=== PATIENT | female | born 1970 | race Caucasian/White ===

== ENCOUNTER 2020-07-24 00:26 | Observation (INO) | payer BC ==
[~2020-07-24] VITALS: Ht 170.2 cm; Wt 121.0 kg
[~2020-07-24 00:26] MED LIST: IRBE1TAB PO; LEVO500T2 PO
[2020-07-24] MEDS ORDERED: normal saline 1000ML IV soln IVB ONE (00:55)
[2020-07-24] MEDS ORDERED: adenosine 3mg/ml 2ml vial IV ONE ×2 (01:10→01:25)
[2020-07-24 01:30] LABS: BASOPHILS % (AUTO) 0.4 % (0-1); EOSINOPHILS % (AUTO) 0.1 % (0-6); LYMPHOCYTES # (AUTO) 1.5 X10'3 (1.1-4.8); MEAN PLATELET VOLUME 6.5 FL (7.4-10.4); MONOCYTES # (AUTO) 0.9 X10'3 (0-0.9); MONOCYTES % (AUTO) 7.5 % (2-12); NEUTROPHILS # (AUTO) 9.3 X10'3 (1.8-7.7); PLATELET COUNT 253 X10'3 (140-440); WHITE BLOOD COUNT 11.8 X10'3 (4.5-11.0)
[2020-07-24 01:42] LABS: ALANINE AMINOTRANSFERASE 62 U/L (12-78); ALBUMIN 3.4 G/DL (3.4-5.0); ALBUMIN/GLOBULIN RATIO 0.9 (1.1-1.5); ALKALINE PHOSPHATASE 86 IU/L (46-116); ANION GAP 14 (8-16); ASPARTATE AMINO TRANSFERASE 37 U/L (10-37); BILIRUBIN,TOTAL 0.5 MG/DL (0.1-1.0); BLOOD UREA NITROGEN 15 MG/DL (7-18); BUN/CREATININE RATIO 9.3 (6.6-38.0); CALCIUM 8.5 MG/DL (8.5-10.1); CHLORIDE 96 MMOL/L (99-107); CREATININE 1.62 MG/DL (0.40-0.90); GLUCOSE 162 MG/DL (70-104); SODIUM 132 MMOL/L (135-145); TOTAL PROTEIN 7.3 G/DL (6.4-8.2); eGFR 33 ML/MIN
[2020-07-24 02:04] LABS: HEMATOCRIT 40.2 % (35.0-45.0); HEMOGLOBIN 14.3 g/dl (12.0-16.0); MEAN CORPUSCULAR HEMOGLOBIN 35.9 PG (27.0-31.0); MEAN CORPUSCULAR HGB CONC 35.5 g/dL (33.0-36.5); RED BLOOD COUNT 3.98 X10'6 (4.20-5.60); RED CELL DISTRIBUTION WIDTH 12.8 % (11.5-14.5)
[2020-07-24] MEDS ORDERED: potassium Cl 20 mEq SR tablet PO ONE (03:15)
--- NOTE | 2020-07-24 03:23 | NUR ---
PT AMBULATED TO BATHROOM WITH NO CHEST PAIN, DIZZINESS, OR OTHER PROBLEMS. STEADY GAIT.
[2020-07-24] MEDS ORDERED: LOSA1TAB39 PO (04:24)
[2020-07-24] MEDS ORDERED: LEVO75TA PO (04:24)
[2020-07-24] MEDS ORDERED: POTA10TA19 PO (04:24)
[2020-07-24] MEDS ORDERED: BUPR300T86 PO (04:24)
[2020-07-24] MEDS ORDERED: mag hydrox/Alum hydrox/simeth 30ml oral suspension PO PRN (04:45)
[2020-07-24] MEDS ORDERED: potassium CL 10mEq/100ml bag 100 ML IV PRN ×2 (04:45)
[2020-07-24] MEDS ORDERED: potassium Cl 20 mEq SR tablet PO PRN (04:45)
[2020-07-24] MEDS ORDERED: acetaminophen 325mg tablet PO PRN (04:45)
[2020-07-24] MEDS ORDERED: ondansetron/PF 4mg/2ml inj IV PRN (04:45)
[2020-07-24] MEDS ORDERED: magnesium hydroxide 30ml (MOM) UD suspension PO PRN (04:45)
[2020-07-24 05:20] LABS: HEMOGLOBIN A1C 5.2 % (4.5-6.2)
--- NOTE | 2020-07-24 05:30 | NUR ---
Patient in room ED 3. I have received report from TIMOTHY Renteria in EDand had the opportunity to ask questions and assume patient care.
--- NOTE | 2020-07-24 06:25 | NUR ---
Patient in room PCU 3015. I have received report from TIMOTHY Prieto and had the opportunity to ask questions and assume patient care.
--- NOTE | 2020-07-24 06:30 | NUR ---
Patient in room PCU 3015. I have received report from nayeli snow and had the opportunity to ask questions and assume patient care.
[2020-07-24 06:54] VITALS: BP 123/84
[2020-07-24] MEDS: buPROPion SR 150mg tablet PO SCH ×2 (07:46→20:00)
[2020-07-24] MEDS: losartan 50mg tablet PO SCH (07:47)
[2020-07-24] MEDS: potassium Cl 20 mEq SR tablet PO PRN ×2 (07:47→13:32)
[2020-07-24] MEDS: K and/or MAG REPLACEMENT MC SCH ×3 (07:50→19:53)
[2020-07-24] MEDS ORDERED: levoTHYROXINE 75mcg tablet PO SCH (08:00)
[2020-07-24] MEDS ORDERED: enoxaparin 40mg/0.4ml syringe SUBCUT SCH (08:00)
--- NOTE | 2020-07-24 08:27 | NUR ---
PAGER ID: [phone] MESSAGE: Tony [id number]. Critical trop of 1.71, Ida 1920
--- NOTE | 2020-07-24 08:42 | NUR ---
PAGED DR JEFFREY PAGER ID: [phone] MESSAGE: ALETHA CAI. TROP 1.71 [facility] [id number]
[2020-07-24] MEDS ORDERED: heparin 10,000 units/1 ML INJ IV ONE (09:45)
[2020-07-24 10:25] LABS: BASOPHILS % (AUTO) 0.4 % (0-1); EOSINOPHILS % (AUTO) 0.2 % (0-6); HEMATOCRIT 40.8 % (35.0-45.0); HEMOGLOBIN 14.8 g/dl (12.0-16.0); LYMPHOCYTES # (AUTO) 1.4 X10'3 (1.1-4.8); LYMPHOCYTES % (AUTO) 22.7 % (21-51); MEAN CORPUSCULAR HEMOGLOBIN 36.2 PG (27.0-31.0); MEAN CORPUSCULAR HGB CONC 36.2 g/dL (33.0-36.5); MEAN PLATELET VOLUME 6.3 FL (7.4-10.4); MONOCYTES # (AUTO) 0.7 X10'3 (0-0.9); MONOCYTES % (AUTO) 11.8 % (2-12); NEUTROPHILS # (AUTO) 4.1 X10'3 (1.8-7.7); NEUTROPHILS % (AUTO) 64.9 % (42-75); PLATELET COUNT 223 X10'3 (140-440); RED BLOOD COUNT 4.08 X10'6 (4.20-5.60); WHITE BLOOD COUNT 6.3 X10'3 (4.5-11.0)
[2020-07-24 10:34] LABS: PARTIAL THROMBOPLASTIN TIME 28 SECONDS (22-32)
[2020-07-24] MEDS: heparin 25,000 UNIT/250ml bag 250 ML IV SCH ×2 (10:36→17:58)
[2020-07-24] MEDS ORDERED: magnesium 4gm in 100ml NS 100 ML IV PRN (11:30)
[2020-07-24] MEDS ORDERED: magnesium Cl slow-release 64mg tablet PO PRN (11:30)
[2020-07-24 11:44] VITALS: BP 120/73
--- NOTE | 2020-07-24 14:25 | NUR ---
PAGED DR JEFFREY PAGER ID: [phone] MESSAGE: ALETHA CAI. TROP 10.06. [facility] 2424
[2020-07-24 15:51] VITALS: BP 119/68
[2020-07-24] MEDS: heparin 10,000 units/1 ML INJ IV PRN (17:58)
[2020-07-24 18:00] VITALS: BP 107/70
--- NOTE | 2020-07-24 18:30 | NUR ---
Patient in room PCU 3015. I have received report from TIMOTHY Prieto and had the opportunity to ask questions and assume patient care. Patient is A&O x3, FRANCO and is appropriate. She is resting comfortable on bed with no complaints.
--- NOTE | 2020-07-24 19:32 | NUR ---
Patient is requesting a sleep aid, she says Benadryl works well for her. Per Dr. All marr to order Benadryl 25mg Qhs, may repeat x1 for insomnia
[2020-07-24] MEDS ORDERED: diphenhydrAMINE 25mg capsule PO PRN (19:35)
[2020-07-24] MEDS ORDERED: normal saline 1000ml 1,000 ML IV SCH (19:45)
[2020-07-24] MEDS: acetylcysteine 200 MG/ml 4ml vial PO SCH (20:13)
[2020-07-24 22:00] VITALS: BP 122/75
[2020-07-25] VITALS (8 sets, daily range): BP systolic 119–138; BP diastolic 70–85
[2020-07-25 01:15] LABS: BASOPHILS % (AUTO) 0.3 % (0-1); EOSINOPHILS % (AUTO) 0.4 % (0-6); HEMATOCRIT 40.1 % (35.0-45.0); LYMPHOCYTES # (AUTO) 2.3 X10'3 (1.1-4.8); LYMPHOCYTES % (AUTO) 36.5 % (21-51); MEAN CORPUSCULAR HEMOGLOBIN 35.4 PG (27.0-31.0); MEAN CORPUSCULAR HGB CONC 34.9 g/dL (33.0-36.5); MEAN CORPUSCULAR VOLUME 101.4 FL (78-98); MEAN PLATELET VOLUME 6.7 FL (7.4-10.4); MONOCYTES # (AUTO) 0.6 X10'3 (0-0.9); MONOCYTES % (AUTO) 9.6 % (2-12); NEUTROPHILS # (AUTO) 3.3 X10'3 (1.8-7.7); NEUTROPHILS % (AUTO) 53.2 % (42-75); PLATELET COUNT 197 X10'3 (140-440); RED BLOOD COUNT 3.95 X10'6 (4.20-5.60); RED CELL DISTRIBUTION WIDTH 13.2 % (11.5-14.5); WHITE BLOOD COUNT 6.3 X10'3 (4.5-11.0)
[2020-07-25 01:17] LABS: ALANINE AMINOTRANSFERASE 59 U/L (12-78); ALBUMIN 2.9 G/DL (3.4-5.0); ALBUMIN/GLOBULIN RATIO 0.8 (1.1-1.5); ALKALINE PHOSPHATASE 74 IU/L (46-116); ANION GAP 9 (8-16); ASPARTATE AMINO TRANSFERASE 47 U/L (10-37); BILIRUBIN,TOTAL 0.4 MG/DL (0.1-1.0); BLOOD UREA NITROGEN 9 MG/DL (7-18); BUN/CREATININE RATIO 10.8 (6.6-38.0); CALCIUM 8.1 MG/DL (8.5-10.1); CHLORIDE 105 MMOL/L (99-107); CHOL/HDL RATIO 4.6 (0.00-4.99); CHOLESTEROL 152 MG/DL (0-200); CREATININE 0.83 MG/DL (0.40-0.90); GLUCOSE 98 MG/DL (70-104); HDL CHOLESTEROL 33 MG/DL (35-60); LDL CHOLESTEROL 104 MG/DL (50-100); PHOSPHORUS 2.5 MG/DL (2.3-4.5); POTASSIUM 3.8 MMOL/L (3.5-5.1); SODIUM 137 MMOL/L (135-145); TOTAL CARBON DIOXIDE 23.5 MMOL/L (24-32); TOTAL PROTEIN 6.7 G/DL (6.4-8.2); TRIGLYCERIDES 148 MG/DL (20-135); eGFR 72 ML/MIN
--- NOTE | 2020-07-25 01:25 | NUR ---
lab crit trop 2.2. aware, no new orders.
[2020-07-25] MEDS: heparin 10,000 units/1 ML INJ IV PRN (01:40)
[2020-07-25] MEDS: heparin 25,000 UNIT/250ml bag 250 ML IV SCH (05:34)
--- NOTE | 2020-07-25 06:06 | NUR ---
Problems reprioritized. Patient report given, questions answered & plan of care reviewed with TIMOTHY Yign.
--- NOTE | 2020-07-25 06:22 | NUR ---
Problems reprioritized. Patient report given, questions answered & plan of care reviewed with TIMOTHY Ortiz.
[2020-07-25] MEDS: losartan 50mg tablet PO SCH (07:21)
[2020-07-25] MEDS: buPROPion SR 150mg tablet PO SCH (07:21)
[2020-07-25] MEDS: acetylcysteine 200 MG/ml 4ml vial PO SCH (07:22)
[2020-07-25] MEDS ORDERED: sotalol 80mg tablet PO SCH (08:00)
[2020-07-25] MEDS ORDERED: levoTHYROXINE 100mcg tablet PO SCH (08:00)
[2020-07-25] MEDS: K and/or MAG REPLACEMENT MC SCH (08:56)
--- NOTE | 2020-07-25 09:31 | NUR ---
Discussed with patient weither she preferred lexiscan or angiogram; patient prefers lexiscan due to it "being less invasive" than angiogram. Cardiology notified about troponin decreasing to 1.8. Dr. Ascencio okay with stress test with elevated troponins. Will notify nuclear medicine. Dr. Ascencio also ordered 40mg of Sotalol BID, starting now.
[2020-07-25] MEDS ORDERED: metoprolol tartrate 1mg/ml inj IV PRN (09:40)
[2020-07-25] MEDS ORDERED: nitroGLYCERIN 0.4mg SUBLingual tab SL PRN (09:40)
[2020-07-25] MEDS ORDERED: regadenoson 0.4mg/5ml syringe IV ONE (09:40)
[2020-07-25] MEDS ORDERED: aminophylline 250mg/10ml inj. IV PRN (09:40)
--- NOTE | 2020-07-25 13:25 | NUR ---
Patient in room PCU 3015. I have received report from Deonna AGUIRRE and had the opportunity to ask questions and assume patient care. Pt is going to discharge soon per MD
[2020-07-25] MEDS ORDERED: ASPI-1264 PO (13:28)
[2020-07-25] MEDS ORDERED: SOTA80TA73 PO (13:28)
[2020-07-25] MEDS ORDERED: LEVO100T9 PO (13:28)
--- NOTE | 2020-07-25 14:32 | NUR ---
PAGER ID: [phone] MESSAGE: [id number] Beatriz Morales, please call to clarify discharge instuctions. Jennifer AGUIRRE [id number]
--- NOTE | 2020-07-25 14:40 | NUR ---
Clarified synthroid dose of 100 mcg's and not 200 mcg. Called new prescriptions into [facility] on [address] per patient request.
--- NOTE | 2020-07-25 15:07 | NUR ---
All discharge instructions reviewed with patient and she verbalized understanding. Tele removed. PIV removed. Pt. educated regarding diet, new medications and F/U appointments. Encouraged patient to minimize stress in her life. Pt. left in stable condition.
== END 2020-07-25 15:06 | disposition home or self-care (01) ==
LOC: ER 00:27 → ED HOLD 04:43 → PCU 3S 05:57
PROVIDERS: ADMIT Internal Medicine; ATTEND Family Medicine
DX: I47.1 Supraventricular tachycardia (principal); I48.0 Paroxysmal atrial fibrillation; I25.9 Chronic ischemic heart disease, unspecified; I10 Essential (primary) hypertension; G47.33 Obstructive sleep apnea (adult) (pediatric); M19.90 Unspecified osteoarthritis, unspecified site; E66.9 Obesity, unspecified; F41.8 Other specified anxiety disorders; E03.9 Hypothyroidism, unspecified; E87.6 Hypokalemia; Z79.899 Other long term (current) drug therapy; Z86.79 Personal history of other diseases of the circulatory system
CPT/HCPCS: 36415; 71045; 78452; 80053; 80061; 83036; 83735; 84100; 84132; 84443; 84484; 85025; 85610; 85730; 87081; 93005; 93017; 93306; 96365; 96366; 96375; 96376; 99285; A9500; G0378; J0153; J1644; J2785; J7030; Q0163

== ENCOUNTER 2021-03-10 02:29 | Inpatient (IN) | payer BC, OTHER ==
[~2021-03-10] VITALS: Ht 167.6 cm; Wt 128.3 kg
[~2021-03-10 02:29] MED LIST changes: +BUPR300T86 PO; -IRBE1TAB PO; +LEVO100T9 PO; -LEVO500T2 PO; +LOSA1TAB39 PO; +POTA10TA19 PO; +SOTA80TA73 PO
[2021-03-10] MEDS ORDERED: adenosine 3mg/ml 2ml vial IV ONE ×6 (02:56→06:15)
--- NOTE | 2021-03-10 02:58 | NUR ---
Pt. alert, oriented, understands procedure, ready with MD at bedside. 0256: 6mg Adenosine push with no response. 0258: 12 mg adenosine pushed, withMD at bedside, BP 61/40, hr 175, RR 18 0301: 12mg Adenosine pushed HR 173, BP 98/77, 030: HR conversion to 104 S-Tach, pt remains alert and oriented, laughing with MD, reports some cp, and tired.
[2021-03-10 03:18] LABS: BASOPHILS # (AUTO) 0.1 X10'3 (0-0.2); BASOPHILS % (AUTO) 0.5 % (0-1); EOSINOPHILS # (AUTO) 0.3 X10'3 (0-0.9); EOSINOPHILS % (AUTO) 1.8 % (0-6); HEMATOCRIT 42.3 % (35.0-45.0); HEMOGLOBIN 14.8 g/dl (12.0-16.0); LYMPHOCYTES # (AUTO) 2.7 X10'3 (1.1-4.8); LYMPHOCYTES % (AUTO) 16.4 % (21-51); MEAN CORPUSCULAR HEMOGLOBIN 36.8 PG (27.0-31.0); MEAN CORPUSCULAR HGB CONC 34.9 g/dL (33.0-36.5); MEAN CORPUSCULAR VOLUME 105.5 FL (78-98); MEAN PLATELET VOLUME 6.6 FL (7.4-10.4); MONOCYTES # (AUTO) 0.9 X10'3 (0-0.9); MONOCYTES % (AUTO) 5.6 % (2-12); NEUTROPHILS # (AUTO) 12.3 X10'3 (1.8-7.7); NEUTROPHILS % (AUTO) 75.7 % (42-75); PLATELET COUNT 367 X10'3 (140-440); RED BLOOD COUNT 4.01 X10'6 (4.20-5.60); RED CELL DISTRIBUTION WIDTH 12.3 % (11.5-14.5); WHITE BLOOD COUNT 16.3 X10'3 (4.5-11.0)
[2021-03-10 03:30] LABS: D-DIMER 0.35 MG/L FEU (0-0.50)
[2021-03-10 03:55] LABS: ALANINE AMINOTRANSFERASE 45 U/L (12-78); ALBUMIN 3.6 G/DL (3.4-5.0); ALBUMIN/GLOBULIN RATIO 0.9 (1.1-1.5); ALKALINE PHOSPHATASE 81 IU/L (46-116); ANION GAP 11 (8-16); ASPARTATE AMINO TRANSFERASE 30 U/L (10-37); BILIRUBIN,TOTAL 0.4 MG/DL (0.1-1.0); BLOOD UREA NITROGEN 30 MG/DL (7-18); BUN/CREATININE RATIO 20.4 (6.6-38.0); CALCIUM 8.2 MG/DL (8.5-10.1); CHLORIDE 96 MMOL/L (99-107); CREATININE 1.47 MG/DL (0.40-0.90); GLUCOSE 151 MG/DL (70-104); SODIUM 132 MMOL/L (135-145); TOTAL CARBON DIOXIDE 24.8 MMOL/L (24-32); TOTAL PROTEIN 7.6 G/DL (6.4-8.2); eGFR 37 ML/MIN
[2021-03-10 04:52] LABS: MAGNESIUM 2.1 MG/DL (1.5-2.4); TROPONIN I 0.07 NG/ML (0.0-0.05)
[2021-03-10] MEDS ORDERED: aspirin 81mg tab.chew PO ONE ×2 (05:30→08:15)
[2021-03-10] MEDS ORDERED: PARO10TA85 PO ×2 (05:42→05:45)
--- NOTE | 2021-03-10 06:17 | NUR ---
0614: Pt account resolution specialist light, back in SVT 174, 121/92, rr 12 0618: 6mg Adenosine IVP, with + conversion back into SR.
[2021-03-10] MEDS ORDERED: amiodarone 50MG/ML inj IV ONE (08:00)
[2021-03-10] MEDS ORDERED: metoprolol tartrate 1mg/ml inj IV ONE (08:00)
[2021-03-10] MEDS ORDERED: normal saline 1000ml 1,000 ML IVB ONE (09:15)
[2021-03-10] MEDS: sotalol 80mg tablet PO SCH ×2 (09:38→20:00)
[2021-03-10] MEDS ORDERED: magnesium Cl slow-release 64mg tablet PO PRN (09:45)
[2021-03-10] MEDS ORDERED: magnesium 2GM in 50ml NS 50 ML IV PRN (09:45)
[2021-03-10] MEDS ORDERED: potassium Cl 20 mEq SR tablet PO PRN ×2 (09:45)
[2021-03-10] MEDS ORDERED: mag hydrox/Alum hydrox/simeth 30ml oral suspension PO PRN (09:45)
[2021-03-10] MEDS ORDERED: magnesium 4gm in 100ml NS 100 ML IV PRN (09:45)
[2021-03-10] MEDS ORDERED: HYDROcodone/acetaminophen 10/325mg tab PO PRN (09:45)
[2021-03-10] MEDS ORDERED: HYDROcodone/acetaminophen 5mg/325mg tablet PO PRN (09:45)
[2021-03-10] MEDS ORDERED: ondansetron/PF 4mg/2ml inj IV PRN (09:45)
[2021-03-10] MEDS ORDERED: potassium Cl 40MEQ/1/2NS 520ml 520 ML IV PRN ×2 (09:45)
[2021-03-10] MEDS ORDERED: nitroGLYCERIN 0.4mg SUBLingual tab SL PRN (09:45)
[2021-03-10] MEDS ORDERED: magnesium hydroxide 30ml (MOM) UD suspension PO PRN (09:45)
[2021-03-10] MEDS ORDERED: acetaminophen 325mg tablet PO PRN ×2 (09:45)
[2021-03-10] MEDS: normal saline 1000ml 1,000 ML IV SCH ×2 (09:53→12:11)
--- NOTE | 2021-03-10 10:52 | NUR ---
Patient in room ED 3. I have received report from Judith AGUIRRE and had the opportunity to ask questions and assume patient care.
[2021-03-10 11:30] VITALS: BP 95/63
[2021-03-10] MEDS ORDERED: ondansetron 4mg rapidly disintigrating tab PO PRN (14:30)
[2021-03-10 15:00] VITALS: BP 123/67
--- NOTE | 2021-03-10 15:44 | NUR ---
Paged Dr. Easley regarding Critical Lab level of troponin 0.79 PAGER ID: [phone] MESSAGE: [facility] 24A Beatriz Morales critical lab troponin 0.79. No chest pain or discomfort. Kay AGUIRRE [id number]
--- NOTE | 2021-03-10 15:54 | NUR ---
Called Dr. Ascencio and gave information about critical troponin level 0.79 up from 0.65, patient Beatriz Morales is having no chest pain or discomfort. Patient's heart rate is 79 and is in Normal Sinus Rhythm. ECHO was completed today. to [facility]. She will inform Dr. Ascencio and call us back.
--- NOTE | 2021-03-10 17:37 | NUR ---
Dr. Vladimir Palma call us back to inform that he will not order stress test at this time, He will continue monitor and review patients status tomorrow 03/11/21.
--- NOTE | 2021-03-10 17:41 | NUR ---
Paged Dr. Rueda regarding Dr. Ascencio reply to the elevated troponin of 0.79 PAGER ID: [phone] MESSAGE: [facility] [id number] Beatriz Morales troponin 0.79, Dr. Gilbert had Minerva call us back to inform that he will not order stress test at this time, He will continue monitor and review patients status tomorrow 03/11/21 Kay AGUIRRE [id number]
[2021-03-10 18:00] VITALS: BP 120/76
--- NOTE | 2021-03-10 18:19 | NUR ---
Problems reprioritized. Patient report given, questions answered & plan of care reviewed with Ninoska RN at bedside.
--- NOTE | 2021-03-10 18:30 | NUR ---
Patient in room PCU 3024. I have received report from Kay AGUIRRE and had the opportunity to ask questions and assume patient care.
[2021-03-10] MEDS: K and/or MAG REPLACEMENT MC SCH (19:48)
[2021-03-10] MEDS: heparin, porcine 5000 units/ml vial SQ SCH (20:00)
[2021-03-10] MEDS ORDERED: sotalol 80mg tablet PO SCH (20:00)
[2021-03-10] MEDS: buPROPion SR 150mg tablet PO SCH (20:03)
[2021-03-10] MEDS ORDERED: temazepam 15mg capsule PO PRN (21:00)
[2021-03-10 22:00] VITALS: BP 124/68
[2021-03-11 02:00] VITALS: BP 128/47
[2021-03-11 03:13] LABS: HEMATOCRIT 35.4 % (35.0-45.0); HEMOGLOBIN 12.4 g/dl (12.0-16.0); MEAN CORPUSCULAR HEMOGLOBIN 37.2 PG (27.0-31.0); MEAN CORPUSCULAR HGB CONC 35.1 g/dL (33.0-36.5); MEAN CORPUSCULAR VOLUME 105.7 FL (78-98); MEAN PLATELET VOLUME 6.3 FL (7.4-10.4); PLATELET COUNT 222 X10'3 (140-440); RED BLOOD COUNT 3.35 X10'6 (4.20-5.60); RED CELL DISTRIBUTION WIDTH 12.8 % (11.5-14.5); WHITE BLOOD COUNT 7.4 X10'3 (4.5-11.0)
[2021-03-11 03:42] LABS: ALANINE AMINOTRANSFERASE 36 U/L (12-78); ALBUMIN 2.7 G/DL (3.4-5.0); ALBUMIN/GLOBULIN RATIO 0.8 (1.1-1.5); ALKALINE PHOSPHATASE 58 IU/L (46-116); ANION GAP 9 (8-16); ASPARTATE AMINO TRANSFERASE 27 U/L (10-37); BILIRUBIN,TOTAL 0.4 MG/DL (0.1-1.0); BLOOD UREA NITROGEN 13 MG/DL (7-18); BUN/CREATININE RATIO 16.9 (6.6-38.0); CALCIUM 7.5 MG/DL (8.5-10.1); CHLORIDE 104 MMOL/L (99-107); CHOL/HDL RATIO 3.8 (0.00-4.99); CHOLESTEROL 189 MG/DL (0-200); CREATININE 0.77 MG/DL (0.40-0.90); GLUCOSE 95 MG/DL (70-104); HDL CHOLESTEROL 50 MG/DL (35-60); LDL CHOLESTEROL 124 MG/DL (50-100); MAGNESIUM 1.9 MG/DL (1.5-2.4); PHOSPHORUS 3.3 MG/DL (2.3-4.5); POTASSIUM 3.6 MMOL/L (3.5-5.1); SODIUM 139 MMOL/L (135-145); TOTAL CARBON DIOXIDE 25.7 MMOL/L (24-32); TOTAL PROTEIN 6.1 G/DL (6.4-8.2); TRIGLYCERIDES 108 MG/DL (20-135); eGFR 79 ML/MIN
[2021-03-11 03:49] LABS: TROPONIN I 0.68 NG/ML (0.0-0.05)
[2021-03-11] MEDS: normal saline 1000ml 1,000 ML IV SCH (05:45)
--- NOTE | 2021-03-11 06:00 | NUR ---
Problems reprioritized. Patient report given, questions answered & plan of care reviewed with Ella RN.
--- NOTE | 2021-03-11 06:00 | NUR ---
Patient in room PCU 3024. I have received report from JUDE AGUIRRE and had the opportunity to ask questions and assume patient care.
[2021-03-11 07:23] VITALS: BP 120/59
[2021-03-11] MEDS: K and/or MAG REPLACEMENT MC SCH (08:00)
[2021-03-11] MEDS ORDERED: losartan 50mg tablet PO SCH (08:00)
[2021-03-11] MEDS ORDERED: aspirin 325mg tablet, delayed-release (Ecotrin) PO SCH (08:00)
[2021-03-11] MEDS ORDERED: levoTHYROXINE 100mcg tablet PO SCH (08:00)
[2021-03-11] MEDS ORDERED: potassium chloride 10mEq ER tablet PO SCH (08:00)
[2021-03-11] MEDS ORDERED: HYDROchlorothiazide 25mg tablet PO SCH (08:00)
[2021-03-11] MEDS ORDERED: PARoxetine 10mg tablet PO SCH (08:00)
[2021-03-11 08:54] VITALS: BP_SYST 120
[2021-03-11] MEDS: buPROPion SR 150mg tablet PO SCH (08:55)
[2021-03-11] MEDS: sotalol 80mg tablet PO SCH (08:55)
[2021-03-11] MEDS: heparin, porcine 5000 units/ml vial SQ SCH (08:55)
[2021-03-11] MEDS ORDERED: SOTA120T22 PO (10:00)
== END 2021-03-11 10:55 | disposition home or self-care (01) | DRG 309 ==
LOC: ER 02:30 → ED HOLD 09:44 → EDBEDREQ 10:25 → PCU 3S 11:03
PROVIDERS: ADMIT Family Medicine; ATTEND Family Medicine
DX: I47.1 Supraventricular tachycardia (principal); E87.1 Hypo-osmolality and hyponatremia; N17.9 Acute kidney failure, unspecified; D72.829 Elevated white blood cell count, unspecified; E03.9 Hypothyroidism, unspecified; I10 Essential (primary) hypertension; I48.91 Unspecified atrial fibrillation; F32.9 Major depressive disorder, single episode, unspecified; F41.9 Anxiety disorder, unspecified; G89.29 Other chronic pain; K21.9 Gastro-esophageal reflux disease without esophagitis; R11.2 Nausea with vomiting, unspecified; R77.8 Other specified abnormalities of plasma proteins; Z82.49 Family history of ischemic heart disease and other diseases of the circulatory system; Z79.899 Other long term (current) drug therapy; Z79.890 Hormone replacement therapy
CPT/HCPCS: 36415; 71045; 80053; 80061; 83735; 83880; 84100; 84443; 84484; 85025; 85027; 85379; 87081; 93005; 93306; 96374; 96376; 99285; G0378; J0153; J1644; J3490; J7030